=== PATIENT | female | born 1995 | race Caucasian/White ===

== ENCOUNTER 2017-01-13 16:08 | Emergency (ER) | payer OTHER ==
[~2017-01-13] VITALS: Ht 162.6 cm; Wt 49.5 kg
[2017-01-13 16:10] VITALS: Ht 162.6 cm; Wt 49.5 kg
[2017-01-13] MEDS ORDERED: IBUP400T22 PO (18:02)
--- NOTE | 2017-01-13 18:06 | RADRPT ---
PROCEDURE: XR Hip 2 Views. CLINICAL INDICATION: Right hip pain TECHNIQUE: AP and frog lateral views of the right hip were performed. COMPARISON: None. FINDINGS: The osseous structures are intact. No destructive bony lesions are observed. Interosseous spaces a ppear normal. The soft tissues surrounding the hip are unremarkable. IMPRESSION: Unremarkable right hip. If further characterization is needed CT or MRI could be helpful. RPTAT:AAJJ RPTAT: AA .Shad Patel MD, Date Time Electronically viewed and signed by .Shad Patel MD, on 01/13/2017 18:05 .P/
[2017-01-13 18:27] VITALS: BP 117/80; PULSE 102; RESP 18; TEMP 98.9
--- NOTE | 2017-01-13 18:29 | ERA ---
ER Documentation Chief Complaint Date/Time DATE: 01/13/17 TIME: 18:25 Chief Complaint ELOY HIP PAIN MORE ON THE RIGHT X 2 MONTHS HPI Patient is a 21-year-old female presenting of a one-month history of increasing right hip pain that radiates to the right knee. Patient has not taking any medication at this time to relieve the symptoms. Patient states that she is limping. Patient says that the pain is worse with motion. Pt denies weight loss, fevers, nausea, vomiting, diarrhea, constipation, hyperhidrosis, rigors, fatigue, dyspnea, or malaise. ROS All systems reviewed and are negative except as per history of present illness. Medications Home Meds Active Scripts Ibuprofen* (Motrin*) 400 Mg Tab, 400 MG PO Q6H Y for PAIN AND OR ELEVATED TEMP, #30 TAB Prov:SHANNA GALLAGHER PA-C 01/13/17 Allergies Allergies: Coded Allergies: Sulfa (Sulfonamide Antibiotics) (Verified Allergy, Unknown, 01/13/17) PMhx/Soc Medical and Surgical Hx: pt denies Medical Hx, pt denies Surgical Hx Hx Alcohol Use: No Hx Substance Use: No Hx Tobacco Use: No Smoking Status: Never smoker Physical Exam Vitals Vital Signs Date Time Temp Pulse Resp B/P Pulse Ox O2 Delivery O2 Flow Rate FiO2 01/13/17 16:10 98.9 118 18 120/80 98 Physical Exam Const: [] Head: Atraumatic Eyes: Normal Conjunctiva ENT: Normal External Ears, Nose and Mouth. Neck: Full range of motion..~ No meningismus. Resp: Clear to auscultation bilaterally Cardio: Regular rate and rhythm, no murmurs Abd: Soft, non tender, non distended. Normal bowel sounds Skin: No petechiae or rashes Back: No midline or flank tenderness Ext: No cyanosis, or edema Neur: Awake and alert Psych: Normal Mood and Affect Procedures/MDM Patient is a healthy-appearing 21-year-old female who is complaining of right hip pain worse with movement that radiates to the anterior knee. Patient has decreased range of motion with internal rotation. Patient has a negative Reza' s test. Patient's range of motion is otherwise unremarkable. Patient does walk with a slight limp secondary to pain. Patient has no back pain or midline tenderness. There is no tenderness to palpation. There is no history of trauma. Since this is a initial encounter we will go ahead and get a plain film of the hip including a frog leg lateral. Patient's x-ray is unremarkable. We will go ahead and discharge with return precautions. Ibuprofen will be prescribed for possible inflammation and discomfort/pain. Have advised patient to follow-up with primary care provider for a possible referral and a more chronic evaluation. Departure Diagnosis: Primary Impression: Hip pain, right Condition: Stable Patient Instructions: Pain Control (Child) Additional Instructions: Follow up with your PCP within the next 1-3 days for a more thorough evaluation and a possible referral to a specialist. Return the the emergency department immediately if symptoms worsen or change. If you have any questions regarding medications, ask your pharmacist or us before you leave. If any adverse reactions occur while taking your medications, discontinue the treatment and return to the emergency department immediately. Take your medications as directed, and complete the entire course of treatment. SHANNA GALLAGHER PA-C Jan 13, 2017 18:29
== END 2017-01-13 18:27 | disposition home or self-care (01) ==
LOC: FTE 16:08
DX: M25.551 Pain in right hip (principal)
CPT/HCPCS: 73510

== ENCOUNTER 2017-05-12 12:55 | Emergency (ER) | payer MEDICAID, OTHER ==
[~2017-05-12] VITALS: Ht 162.6 cm; Wt 49.0 kg
[~2017-05-12 12:55] MED LIST: IBUP400T22 PO
[2017-05-12 12:57] VITALS: Ht 162.6 cm; Wt 49.0 kg
[2017-05-12 14:09] LABS: BASOPHILS % 0.4 % (0.0-2.0); EOSINOPHILS # 0.1 10^3/ul (0.0-0.5); EOSINOPHILS % 1.2 % (0.0-7.0); HEMATOCRIT 42.3 % (37.0-47.0); HEMOGLOBIN 14.4 g/dl (12.0-16.0); LYMPHOCYTES # 1.7 10^3/ul (0.8-2.9); LYMPHOCYTES % 20.6 % (18.0-55.0); MEAN CORPUSCULAR HEMOGLOBIN 31.3 pg (29.0-33.0); MEAN PLATELET VOLUME 10.4 fl (7.4-10.4); MONOCYTE # 0.4 10^3/ul (0.3-0.9); MONOCYTES % 4.9 % (0.0-13.0); NEUTROPHIL # 6.1 10^3/ul (1.6-7.5); NEUTROPHILS % 72.7 % (30.0-74.0); PLATELET COUNT 186 10^3/UL (140-415); RED CELL DISTRIBUTION WIDTH 12.3 % (11.5-14.5); WHITE BLOOD COUNT 8.4 10^3/ul (4.8-10.8)
[2017-05-12 14:29] LABS: ADD UMIC YES; UR ASCORBIC ACID NEGATIVE (NEGATIVE); UR BILIRUBIN (Dip) NEGATIVE (NEGATIVE); UR BLOOD (Dip) 3+ mg/dL (NEGATIVE); UR CLARITY CLEAR (CLEAR); UR COLOR YELLOW (YELLOW); UR GLUCOSE (Dip) NEGATIVE (NEGATIVE); UR KETONES (Dip) NEGATIVE (NEGATIVE); UR LEUKOCYTE ESTERASE (Dip) TRACE Leu/ul (NEGATIVE); UR MUCUS FEW /HPF (NONE SEEN); UR NITRITE (Dip) NEGATIVE (NEGATIVE); UR RBC > 182 /HPF (0-5); UR SPECIFIC GRAVITY (Dip) 1.016 (1.003-1.030); UR SQUAMOUS EPITHELIAL CELL FEW /HPF (FEW); UR TOTAL PROTEIN (Dip) 1+ mg/dl (NEGATIVE); UR UROBILINOGEN (Dip) NEGATIVE (NEGATIVE)
--- NOTE | 2017-05-12 16:40 | RADRPT ---
PROCEDURE: OBSTETRIC ULTRASOUND CLINICAL INDICATION: Patient with positive test and vaginal bleeding. TECHNIQUE: Transabdominal and transvaginal pelvic ultrasound was performed. COMPARISON: None. FINDINGS: No intrauterine gestational sac is seen. The uterus measures The endometrium measures 8 mm in thickn ess There is no myometrial mass. No adnexal mass is seen. There is trace free pelvic fluid. The ovaries are unremarkable with preserved vascular flow. IMPRESSION: No intrauterine or extrauterine gestational sac identified. Please correlate with the beta HCG level . RPTAT: HMZ .Rocky Aranda MD, MD Date Time Electronically viewed and signed by .Rocky Aranda MD, on 05/12/2017 16:40 .Z/
[2017-05-12] MEDS ORDERED: NITR-58 PO (17:17)
--- NOTE | 2017-05-12 18:31 | ERD ---
ER Documentation Chief Complaint Date/Time DATE: 05/12/17 TIME: 18:28 Chief Complaint LOWER ABDOMINAL PAIN , VAGINAL BLEEDING TODAY, TOOK TEST POSITIVE HPI 21-year-old female patient with no significant past medical history presents to the ED complaining of lower abdominal pain associated with vaginal bleeding that started earlier today. Patient reports that she took a test, and it was positive. States that her last menses was sometime at the end of March. Reports that she is nauseous but denies any vomiting. States that she has had to change for pads. Denies any chest pain, shortness of breath, vaginal discharge, dysuria, urgency, frequency, hematuria. ROS All systems reviewed and are negative except as per history of present illness. Medications Home Meds Active Scripts Nitrofurantoin Monohyd Macrocr* (Macrobid*) 100 Mg Capsr, 100 MG PO BID for 7 Days, CAP Prov:MOISE MCGRAW PA-C 05/12/17 Ibuprofen* (Motrin*) 400 Mg Tab, 400 MG PO Q6H Y for PAIN AND OR ELEVATED TEMP, #30 TAB Prov:SHANNA GALLAGHER PA-C 01/13/17 Allergies Allergies: Coded Allergies: Sulfa (Sulfonamide Antibiotics) (Verified Allergy, Unknown, 05/12/17) PMhx/Soc Medical and Surgical Hx: pt denies Medical Hx, pt denies Surgical Hx Hx Alcohol Use: No Hx Substance Use: No Hx Tobacco Use: No Smoking Status: Never smoker Physical Exam Vitals Vital Signs Date Time Temp Pulse Resp B/P Pulse Ox O2 Delivery O2 Flow Rate FiO2 05/12/17 12:57 98.6 112 18 130/89 98 Physical Exam Const: Qrx-coo-forjjybre, well-nourished. In no acute distress. Head: Atraumatic, normocephalic Eyes: Normal Conjunctiva without injection. No purulent discharge. ENT: Normal external ear, nose. Moist oropharynx without tonsillar exudates. Non -erythematous pharynx. Uvula midline. No drooling. No trismus. Neck: No cervical midline tenderness. Full range of motion. No meningismus. No cervical lymphadenopathy. No JVD. Resp: Clear to auscultation bilaterally. No wheezing, rhonchi, rales, or crackles. No accessory muscle use. No retractions. Cardio: Regular rate and rhythm. No murmurs, rubs or gallops. Abd: Soft, suprapubic tenderness, non distended. Normal bowel sounds. No palpable masses. No rebound tenderness. No guarding. Negative McBurney's point. Negative psoas sign. Negative obturator sign. Skin: No petechiae or rashes Back: No midline tenderness. No CVA tenderness. Ext: No cyanosis, or edema. Neur: Awake and alert. Normal gait. Normal coordination. Psych: Normal Mood and Affect Results 24 hrs Laboratory Tests Test 05/12/17 14:00 White Blood Count 8.410^3/ul Red Blood Count 4.6010^6/ul Hemoglobin 14.4g/dl Hematocrit 42.3% Mean Corpuscular Volume 92.0fl Mean Corpuscular Hemoglobin 31.3pg Mean Corpuscular Hemoglobin Concent 34.0g/dl Red Cell Distribution Width 12.3% Platelet Count 93511^3/UL Mean Platelet Volume 10.4fl Neutrophils % 72.7% Lymphocytes % 20.6% Monocytes % 4.9% Eosinophils % 1.2% Basophils % 0.4% Nucleated Red Blood Cells % 0.0/100WBC Neutrophils # 6.110^3/ul Lymphocytes # 1.710^3/ul Monocytes # 0.410^3/ul Eosinophils # 0.110^3/ul Basophils # 0.010^3/ul Nucleated Red Blood Cells # 0.010^3/ul Urine Color YELLOW Urine Clarity CLEAR Urine pH 6.0 Urine Specific [place] 1.016 Urine Ketones NEGATIVEmg/dL Urine Nitrite NEGATIVEmg/dL Urine Bilirubin NEGATIVEmg/dL Urine Urobilinogen NEGATIVEmg/dL Urine Leukocyte Esterase TRACELeu/ul Urine Microscopic RBC > 182/HPF Urine Microscopic WBC 13/HPF Urine Squamous Epithelial Cells FEW/HPF Urine Mucus FEW/HPF Urine Hemoglobin 3+mg/dL Urine Glucose NEGATIVEmg/dL Urine Total Protein 1+mg/dl Beta HCG, Quantitative < 2.4mIU/ml Procedures/MDM 21-year-old female patient with no significant past medical history presents to the ED complaining of vaginal bleeding associated with a positive test at home. Patient is afebrile and nontoxic-appearing. Patient has normal vital signs. An ultrasound, beta-hCG, CBC, type and RH, UA was ordered to evaluate patient. CBC: No evidence of severe infection or anemia Urine: No elevation in nitrites, leukocyte esterase, hematuria. No evidence of UTI Rh: O positive No indication for Rhogam at this time. beta Hcg: < 2.4 PROCEDURE: OBSTETRIC ULTRASOUND CLINICAL INDICATION: Patient with positive test and vaginal bleeding. TECHNIQUE: Transabdominal and transvaginal pelvic ultrasound was performed. COMPARISON: None. FINDINGS: No intrauterine gestational sac is seen. The uterus measures The endometrium measures 8 mm in thickness There is no myometrial mass. No adnexal mass is seen. There is trace free pelvic fluid. The ovaries are unremarkable with preserved vascular flow. IMPRESSION: No intrauterine or extrauterine gestational sac identified. Please correlate with the beta HCG level. Patient's bleeding symptoms have stabilized while in the department. Patient may be experiencing her normal menstruation versus early that is not identified. Low suspicion for symptomatic anemia, ectopic , sepsis, PID, appendicitis, ovarian torsion, tubo-ovarian abscess, surgical abdomen, or other emergent conditions. Patient was educated that there is a risk for threatened . Discharge medications: Macrobid Patient to follow up with BUSINESS INTELLIGENCE DIRECTOR in 2 days for further evaluation and treatment. Patient is to return sooner to the ED for any worsening symptoms. Patient's questions were answered. Patient understood and agreed with discharge plan. Departure Diagnosis: Primary Impression: Vaginal bleeding Condition: Stable Patient Instructions: Understanding the Normal Menstrual Cycle, Vaginal Bleed in Referrals: [facility] YOU HAVE RECEIVED A MEDICAL SCREENING EXAM AND THE RESULTS INDICATE THAT YOU DO NOT HAVE A CONDITION THAT REQUIRES URGENT TREATMENT IN THE EMERGENCY DEPARTMENT. FURTHER EVALUATION AND TREATMENT OF YOUR CONDITION CAN WAIT UNTIL YOU ARE SEEN IN YOUR DOCTORS OFFICE WITHIN THE NEXT 1-2 DAYS. IT IS YOUR RESPONSIBILITY TO MAKE AN APPOINTMENT FOR FOLOW-UP CARE. IF YOU HAVE A PRIMARY DOCTOR --you should call your primary doctor and schedule an appointment IF YOU DO NOT HAVE A PRIMARY DOCTOR YOU CAN CALL OUR PHYSICIAN REFERRAL HOTLINE AT IF YOU CAN NOT AFFORD TO SEE A PHYSICIAN YOU CAN CHOSE FROM THE FOLLOWING [facility] [address] [facility] [address] [facility] [address] [facility] [address] [facility] [address] [facility]. [facility] [address] [facility]. [facility] YOU HAVE RECEIVED A MEDICAL SCREENING EXAM AND THE RESULTS INDICATE THAT YOU DO NOT HAVE A CONDITION THAT REQUIRES URGENT TREATMENT IN THE EMERGENCY DEPARTMENT. FURTHER EVALUATION AND TREATMENT OF YOUR CONDITION CAN WAIT UNTIL YOU ARE SEEN IN YOUR DOCTORS OFFICE WITHIN THE NEXT 1-2 DAYS. IT IS YOUR RESPONSIBILITY TO MAKE AN APPOINTMENT FOR FOLOW-UP CARE. IF YOU HAVE A PRIMARY DOCTOR --you should call your primary doctor and schedule and appointment IF YOU DO NOT HAVE A PRIMARY DOCTOR YOU CAN CALL OUR PHYSICIAN REFERRAL HOTLINE AT . IF YOU CAN NOT AFFORD TO SEE A PHYSICIAN YOU CAN CHOSE FROM THE FOLLOWING [facility]: [facility] [address] [place] [address] [facility] [address] [place] [address] [facility] [address] [place] [address] [facility] URGENT CARE/SPECIALTIES Additional Instructions: Call your primary care doctor TOMORROW for an appointment during the next 1-2 days for a referral to a BUSINESS INTELLIGENCE DIRECTOR.See the doctor sooner or return here if your condition worsens before your appointment time. MOISE MCGRAW PA-C May 12, 2017 18:31 MOISE MCGRAW PA-C May 12, 2017 18:31
== END 2017-05-12 17:18 | disposition home or self-care (01) ==
LOC: FTE 12:55
DX: O20.9 Hemorrhage in early pregnancy, unspecified (principal); Z3A.00 Weeks of gestation of pregnancy not specified
CPT/HCPCS: 36415; 76801; 76817; 81001; 84702; 85025; 86900; 86901; Z7502

== ENCOUNTER 2018-05-29 11:29 | Outpatient (CLI) | END 2018-05-29 13:13 | disposition home or self-care (01) ==

== ENCOUNTER 2018-06-01 09:15 | Outpatient (CLI) | END 2018-06-01 12:30 | disposition home or self-care (01) ==